=== PATIENT | female | born 1950 | race Caucasian/White ===

== ENCOUNTER 2018-04-13 09:39 | Observation (INO) | payer OTHER ==
[~2018-04-13] VITALS: Ht 160 cm; Wt 82.0 kg
[2018-04-13] MEDS ORDERED: SODIUM CHLORIDE FLUSH 10ML SYR IVF ONE (10:00)
[2018-04-13] MEDS ORDERED: HYDR-3307 PO (10:14)
[2018-04-13] MEDS ORDERED: FLUO20CA8 PO (10:15)
[2018-04-13] MEDS ORDERED: BUPR75TA6 PO (10:16)
[2018-04-13] MEDS ORDERED: TIZA4TAB PO (10:16)
[2018-04-13] MEDS ORDERED: LANS30CA PO (10:17)
[2018-04-13] MEDS ORDERED: PRED10TA PO (10:17)
[2018-04-13] MEDS ORDERED: SIMV40TA3 PO (10:18)
[2018-04-13] MEDS ORDERED: SUCR1TAB PO (10:18)
[2018-04-13] MEDS ORDERED: NORT50CA52 PO (10:19)
[2018-04-13] MEDS ORDERED: SULF1TAB24 PO (10:19)
[2018-04-13] MEDS ORDERED: METH18TA PO (10:20)
[2018-04-13 10:21] LABS: BASOPHILS # (AUTO) 0.02 x10^3/uL (0-0.1); BASOPHILS % (AUTO) 0 % (0-1); EOSINOPHILS % (AUTO) 0 % (1-7); LYMPHOCYTES # (AUTO) 0.79 x10^3/uL (1-3.4); LYMPHOCYTES % (AUTO) 7 % (22-44); MD NO; MEAN CORPUSCULAR HEMOGLOBIN 29.3 pg (27.0-34.8); MEAN CORPUSCULAR HGB CONC 32.5 g/dL (32.4-35.8); MEAN CORPUSCULAR VOLUME 90.1 fL (80-100); MEAN PLATELET VOLUME 11.2 fL (7.4-10.4); MONOCYTES # (AUTO) 0.19 x10^3/uL (0.2-0.8); MONOCYTES % (AUTO) 2 % (2-9); NEUTROPHILS # (AUTO) 10.74 x10^3/uL (1.8-6.8); NEUTROPHILS % (AUTO) 91 % (42-75); PLATELET COUNT 246 x10^3/uL (130-400); RED BLOOD COUNT 4.97 x10^6/uL (3.82-5.3); RED CELL DISTRIBUTION WIDTH 14.4 % (9.6-15.2)
[2018-04-13 10:33] LABS: ALBUMIN 3.7 g/dL (3.4-5.0); ANION GAP 7 mmol/L (5-15); CALCIUM 8.8 mg/dL (8.5-10.1); CHLORIDE 102 mmol/L (98-107)
[2018-04-13 10:39] LABS: ALANINE AMINOTRANSFERASE 26 U/L (12-78); ALKALINE PHOSPHATASE 128 U/L (45-117); BILIRUBIN,TOTAL 0.3 mg/dL (0.2-1.0); CREATINE KINASE, TOTAL 200 U/L (26-192); CREATININE 1.23 mg/dL (0.55-1.02); TOTAL PROTEIN 7.3 g/dL (6.4-8.2)
--- NOTE | 2018-04-13 11:24 | NUR ---
PT RESTING IN GURNEY, RR EVEN AND UNLABORED. PT ON CONT SPO2, BP MONITOR, VSS. AWAITING LAB RESULTS. PT DENIES PAIN OR NEEDS ATT.
[2018-04-13 11:52] LABS: INTERNATIONAL NORMALIZED RATIO 0.97 (0.93-1.1); PROTHROMBIN TIME 10.2 Seconds (9.6-11.5)
--- NOTE | 2018-04-13 12:30 | NUR ---
NO CHANGE IN PT STATUS. AWAITING LAB RESULTS AND DISPO
[2018-04-13] MEDS ORDERED: SODIUM CHLORIDE FLUSH 10ML SYR IVF PRN (13:00)
[2018-04-13 13:47] VITALS: BP 137/63
[2018-04-13 14:00] VITALS: BP 137/63
[2018-04-13] MEDS ORDERED: ACETAMINOPHEN 325 MG TABLET PO PRN (14:00)
[2018-04-13] MEDS ORDERED: TIZANIDINE 4MG TABLET PO PRN (14:00)
[2018-04-13] MEDS ORDERED: BUPROPION 75 MG TABLET PO PRN (14:00)
[2018-04-13] MEDS ORDERED: LABETALOL 5MG/ML, 20ML IVPush PRN (14:00)
[2018-04-13 14:20] LABS: HCT (SEDRATE) 44.4 % (34.6-47.8)
[2018-04-13 14:52] LABS: FREE T4 (FREE THYROXINE) 0.84 ng/dL (0.76-1.46); THYROID STIMULATING HORMONE 0.405 mIU/L (0.358-3.740)
[2018-04-13] MEDS ORDERED: GADOBUTROL 10 MMOL/10 ML PFS ONE (15:34)
[2018-04-13] MEDS: NICOTINE 7 MG/24 HR PATCH.TD24 TD SCH (16:15)
[2018-04-13] MEDS: SODIUM CHLORIDE 0.9% 1,000 ML IV SCH (16:16)
[2018-04-13] MEDS: HEPARIN 5,000 UNITS/ML, 1ML SQ SCH ×2 (16:16→21:04)
[2018-04-13] MEDS ORDERED: ERGOCALCIFEROL 50,000 UNIT CAPSULE PO SCH (17:00)
[2018-04-13 18:40] VITALS: BP 116/74
[2018-04-13] MEDS: HYDROcodone/APAP 5/325 TABLET PO PRN (21:04)
[2018-04-14 00:38] LABS: CULTURE INDICATED? YES; MICROSCOPIC AUTO
[2018-04-14 01:42] VITALS: BP 133/70
[2018-04-14] MEDS: SODIUM CHLORIDE 0.9% 1,000 ML IV SCH ×2 (02:57→11:31)
[2018-04-14 05:09] LABS: ALBUMIN 3.4 g/dL (3.4-5.0); ANION GAP 4 mmol/L (5-15); CALCIUM 8.4 mg/dL (8.5-10.1); CHLORIDE 107 mmol/L (98-107)
[2018-04-14 05:12] LABS: BASOPHILS # (AUTO) 0.09 x10^3/uL (0-0.1); BASOPHILS % (AUTO) 1 % (0-1); EOSINOPHILS # (AUTO) 0.03 x10^3/uL (0-0.4); EOSINOPHILS % (AUTO) 0 % (1-7); LYMPHOCYTES % (AUTO) 22 % (22-44); MD NO; MEAN CORPUSCULAR HEMOGLOBIN 29.9 pg (27.0-34.8); MEAN CORPUSCULAR VOLUME 90.8 fL (80-100); MEAN PLATELET VOLUME 11.4 fL (7.4-10.4); MONOCYTES # (AUTO) 0.96 x10^3/uL (0.2-0.8); MONOCYTES % (AUTO) 9 % (2-9); NEUTROPHILS # (AUTO) 6.87 x10^3/uL (1.8-6.8); NEUTROPHILS % (AUTO) 67 % (42-75); PLATELET COUNT 224 x10^3/uL (130-400); RED BLOOD COUNT 4.59 x10^6/uL (3.82-5.3); RED CELL DISTRIBUTION WIDTH 14.1 % (9.6-15.2)
[2018-04-14 05:14] LABS: ALANINE AMINOTRANSFERASE 21 U/L (12-78); ALKALINE PHOSPHATASE 112 U/L (45-117); BILIRUBIN,TOTAL 0.3 mg/dL (0.2-1.0); CHOL/HDL RATIO 2.7; CHOLESTEROL, TOTAL 159 mg/dL (140-239); CREATINE KINASE, TOTAL 119 U/L (26-192); CREATININE 0.98 mg/dL (0.55-1.02); HDL CHOL % 38 % (28-40); HDL CHOLESTEROL (DIRECT) 60 mg/dL (40-60); LDL CHOLESTEROL,CALCULATED 61 mg/dL (54-169); TOTAL PROTEIN 6.6 g/dL (6.4-8.2); TRIGLYCERIDES 192 mg/dL (50-200); VLDL CHOLESTEROL 38 mg/dL (0-25)
[2018-04-14] MEDS: HEPARIN 5,000 UNITS/ML, 1ML SQ SCH ×3 (05:28→20:57)
[2018-04-14 07:34] VITALS: BP 136/89
[2018-04-14] MEDS: HYDROcodone/APAP 5/325 TABLET PO PRN ×2 (08:45→16:15)
[2018-04-14] MEDS: PANTOPROZOLE 40MG TABLET PO SCH (08:45)
[2018-04-14] MEDS: FLUOXETINE HCL 20 MG CAPSULE PO SCH (08:45)
[2018-04-14 12:05] VITALS: BP 111/65
[2018-04-14] MEDS ORDERED: LACTULOSE 20 GM/30 ML UDC PO PRN (16:00)
[2018-04-14] MEDS ORDERED: BISACODYL 10 MG SUPP PR PRN (16:00)
[2018-04-14] MEDS: NICOTINE 7 MG/24 HR PATCH.TD24 TD SCH (16:15)
[2018-04-14 18:40] VITALS: BP 114/68
[2018-04-14] MEDS ORDERED: SENNA/DOCUSATE TABLET PO SCH (21:00)
[2018-04-15 01:17] VITALS: BP 147/71
[2018-04-15] MEDS: HEPARIN 5,000 UNITS/ML, 1ML SQ SCH (05:20)
[2018-04-15 06:31] VITALS: BP 139/75
[2018-04-15] MEDS ORDERED: HYDROcodone/APAP 5/325 TABLET PO PRN (08:00)
[2018-04-15] MEDS ORDERED: ACETAMINOPHEN 325 MG TABLET PO PRN (08:00)
[2018-04-15] MEDS ORDERED: DOCUSATE 100 MG CAPSULE PO SCH (09:00)
[2018-04-15] MEDS ORDERED: DOCUSATE 50 MG/5 ML, 10ML UDC NG SCH (09:00)
[2018-04-15] MEDS ORDERED: CHOLECALCIFEROL 5,000u TAB PO SCH (09:00)
[2018-04-15] MEDS: FLUOXETINE HCL 20 MG CAPSULE PO SCH (09:44)
[2018-04-15] MEDS: PANTOPROZOLE 40MG TABLET PO SCH (09:44)
[2018-04-15] MEDS ORDERED: NICO-485 TD (10:49)
[2018-04-15] MEDS ORDERED: LACT1CAP61 PO (10:49)
[2018-04-15 12:50] VITALS: BP 135/69
[2018-04-15] MEDS ORDERED: SODIUM CHLORIDE 0.9% 1,000 ML IV SCH (13:34)
== END 2018-04-15 11:20 | disposition home health service (06) ==
LOC: ED 10:54 → INTOOBSV 12:41 → EDIP 12:41 → OBSVTOIN 12:41 → 3NW 13:33
PROVIDERS: ADMIT Internal Medicine; ATTEND Hospitalist
DX: R53.1 Weakness (principal); N17.9 Acute kidney failure, unspecified; M62.82 Rhabdomyolysis; E87.1 Hypo-osmolality and hyponatremia; E87.2 Acidosis; R26.2 Difficulty in walking, not elsewhere classified; E55.9 Vitamin D deficiency, unspecified; J44.9 Chronic obstructive pulmonary disease, unspecified; K21.9 Gastro-esophageal reflux disease without esophagitis; G47.00 Insomnia, unspecified; F17.210 Nicotine dependence, cigarettes, uncomplicated; G25.81 Restless legs syndrome; M48.00 Spinal stenosis, site unspecified; D72.829 Elevated white blood cell count, unspecified; R73.9 Hyperglycemia, unspecified; K59.00 Constipation, unspecified; Z90.710 Acquired absence of both cervix and uterus; Z88.8 Allergy status to other drugs, medicaments and biological substances; E86.1 Hypovolemia
CPT/HCPCS: 36415; 71045; 72110; 72157; 72158; 72220; 74018; 80053; 80061; 81001; 82306; 82436; 82550; 82570; 82607; 83605; 83735; 83880; 84100; 84133; 84300; 84439; 84443; 85025; 85610; 85651; 85730; 87040; 87086; 93005; 96360; 96361; 96372; 97163; 97166; 97530; 97535; 99285; A9585; G0378; J1644; J7030